=== PATIENT | female | born 1965 | race Caucasian/White ===

== ENCOUNTER 2019-11-03 08:23 | Emergency (ER) | payer OTHER ==
[~2019-11-03] VITALS: Ht 167.6 cm; Wt 78.0 kg
[2019-11-03 08:26] VITALS: Ht 167.6 cm; Wt 78.0 kg
[2019-11-03 11:00] VITALS: BP 142/73
== END 2019-11-03 11:00 | disposition home or self-care (01) ==
LOC: ED 08:23
DX: R25.2 Cramp and spasm (principal)
CPT/HCPCS: 85378; Q0092

== ENCOUNTER 2020-06-10 20:36 | Emergency (ER) | payer OTHER ==
[~2020-06-10] VITALS: Ht 167.6 cm; Wt 78.0 kg
[2020-06-10 20:44] VITALS: Ht 167.6 cm; Wt 78.0 kg
[2020-06-10 21:48] VITALS: BP 161/92
== END 2020-06-10 21:48 | disposition home or self-care (01) ==
LOC: ED 20:36
DX: S81.851A Open bite, right lower leg, initial encounter (principal); W54.0XXA Bitten by dog, initial encounter; Y93.89 Activity, other specified; Y92.89 Other specified places as the place of occurrence of the external cause; Y99.8 Other external cause status
CPT/HCPCS: 90715